=== PATIENT | female | born 1965 | race Caucasian/White ===

== ENCOUNTER 2021-01-05 18:09 | Emergency (ER) | payer OTHER ==
[~2021-01-05 18:09] MED LIST: ASPIRIN EC81 MG PO; ESCITALOPRAM OX10 MG PO; LISINOPRIL 20MG20 MG PO; LOVASTATIN40 MG PO; PERCOCET 5-3251 EACH PO
[2021-01-05] MEDS ORDERED: PREDNISONE 20MG20 MG PO (19:53)
[2021-01-05] MEDS ORDERED: ATARAX25 MG PO (19:53)
== END 2021-01-05 20:08 | disposition home or self-care (01) ==
LOC: FER 18:09
DX: L50.9 Urticaria, unspecified (principal); I10 Essential (primary) hypertension; E78.5 Hyperlipidemia, unspecified; Z79.899 Other long term (current) drug therapy
CPT/HCPCS: J1100; J1200

== ENCOUNTER 2021-01-07 10:35 | Emergency (ER) | payer OTHER ==
[~2021-01-07 10:35] MED LIST changes: +ATARAX25 MG PO; +PREDNISONE 20MG20 MG PO
[2021-01-07] MEDS ORDERED: PREDNISONE20 MG PO (13:38)
[2021-01-07] MEDS ORDERED: TRIAMCINOLONE 080 GM TOP (13:38)
[2021-01-07] MEDS ORDERED: PEPCID AC20 MG PO (13:38)
== END 2021-01-07 14:17 | disposition home or self-care (01) ==
LOC: FER 10:35
DX: L50.0 Allergic urticaria (principal); I10 Essential (primary) hypertension
CPT/HCPCS: J1200; J2930; J7030